=== PATIENT | male | born 2000 | race Caucasian/White ===

== ENCOUNTER 2025-06-19 21:50 | Emergency (ER) | payer BC, OTHER ==
[~2025-06-19] VITALS: Ht 180.3 cm; Wt 123.6 kg
[~2025-06-19 21:50] MED LIST: PENICILLIN V P500 MG PO
[2025-06-19] MEDS ORDERED: diazePAM 10 MG/2 ML SYR IM ONE (22:15)
[2025-06-19] MEDS ORDERED: KETOROLAC TROMETHAMINE 60 MG/2 ML VIAL IM ONE (22:15)
[2025-06-19] MEDS ORDERED: CYCLOBENZAPRINE10 MG PO (23:31)
[2025-06-19] MEDS ORDERED: CYCLOBENZAPRINE HCL 10 MG HOME.PACK PO ONE (23:45)
[2025-06-19] MEDS ORDERED: methylPREDNISolone 4 MG HOME.PACK PO ONE (23:45)
[2025-06-19 23:53] VITALS: BP 111/95
== END 2025-06-19 23:53 | disposition home or self-care (01) ==
LOC: ED 21:50
DX: S39.012A Strain of muscle, fascia and tendon of lower back, initial encounter (principal); X50.0XXA Overexertion from strenuous movement or load, initial encounter
CPT/HCPCS: 72100; 96372; 99283-25; J1885; J3360